=== PATIENT | female | born 1960 | race Caucasian/White ===

== ENCOUNTER → 2022-03-06 | Outpatient (CLI) | payer OTHER ==
--- NOTE | 2022-03-06 13:51 | KCIC ---
CT SCREENING FOR CORONARY ARTERY History: Reason: Mixed hyperlipidemia, maternal famlity hx. heart disease. / Spl. Instructions: / Hi story: Technique: With retrospective electrocardiogram gating axial reconstructed noncontrast images of the chest at the level of the coronary arteries was performed. Images were post processed on workstation and calcium score calculated using the modified Agatston Janowitz protocol. Exposure: One or more of the following individualized dose reduction techniques were utilized for thi s examination: 1. Automated exposure control 2. Adjustment of the mA and/or kV according to patient size 3. Use of iterative reconstruction technique. Comparison: None Findings: Total coronary calcium score is 0. There is no plaque burden and low cardiovascular disease risk. This is based on the calcium score of 0 of the left main coronary artery, 0 of the left anteri or descending artery, score of 0 of the left circumflex artery and score of 0 of the right coronary a rtery. Noncoronary findings: Minimal atheromatous plaque within the aortic root. Mitral annular calcifications. IMPRESSION: 1. Low cardiovascular disease risk. Calcium score 0. Electronically signed by: Darvin Johnson DO (03/06/2022 1:49 PM) [id number]
== END ==
LOC: KCIC CT 12:30
PROVIDERS: ATTEND Family Medicine
DX: I34.8 Other nonrheumatic mitral valve disorders (principal); E78.2 Mixed hyperlipidemia
CPT/HCPCS: 75571

== ENCOUNTER → 2022-03-06 | Outpatient (CLI) | payer OTHER ==
--- NOTE | 2022-03-06 15:38 | KCIC ---
DXA BONE DENSITY AXIAL History: Postmenopausal Comparison: None. TECHNIQUE: Dual energy x-ray absorptiometry of the lumbar spine and left hip was performed. T-score o f average bone mineral density based was calculated based on standard deviations above or below the e xpected young adult normal value. Diagnostic definitions were established by the [employer] at[employer]. FINDINGS: The average bone mineral density associated with L1-L4 is 1.013 g/cm^2, corresponding with a T-score of -0.3. The average total bone mineral density associated with left hip is 0.852 g/cm^2, corresponding with a T-score of -0.7. Refer to the worksheets for full detail. IMPRESSION: 1. Normal. Average bone mineral density yields a T-score of -1.0 or greater. Fracture risk is low. Electronically signed by: Donal Paige MD (03/06/2022 3:35 PM) [id number]
== END ==
LOC: KCIC DEXA 12:26
PROVIDERS: ATTEND Family Medicine
DX: Z78.0 Asymptomatic menopausal state (principal)
CPT/HCPCS: 77080